=== PATIENT | female | born 1990 | race Caucasian/White ===

== ENCOUNTER 2024-02-18 17:52 | Inpatient (IN) | payer BC ==
[2024-02-18] MEDS ORDERED: Zolpidem Tartrate 5 MG TAB PO PRN (18:38)
[2024-02-18] MEDS ORDERED: Lorazepam 2 MG/ML VIAL SLOW IVP PRN (18:38)
[2024-02-18] MEDS ORDERED: Oxytocin 30 units/NS 500 ML 500 ML IV SCH ×2 (18:38)
[2024-02-18] MEDS ORDERED: Ibuprofen 800 MG TAB PO PRN (18:38)
[2024-02-18] MEDS ORDERED: fentaNYL 50 mcg/mL 1 mL Vial SLOW IVP PRN (18:38)
[2024-02-18] MEDS ORDERED: Lactated Ringer's 1,000 ML IV SCH (18:38)
[2024-02-18] MEDS ORDERED: Ondansetron PF 4 MG/2 ML Vial IVP PRN (18:38)
[2024-02-18] MEDS ORDERED: Diphenoxylate HCl/Atropine Tablet PO PRN ×2 (18:38)
[2024-02-18] MEDS ORDERED: hydrALAZINE 20 MG/ML VIAL SLOW IVP PRN ×2 (18:38)
[2024-02-18] MEDS ORDERED: Docusate 100 MG CAP PO PRN (18:38)
[2024-02-18] MEDS ORDERED: HYDROcodone/Acetaminophen 5/325 mg Tablet PO PRN ×2 (18:38)
[2024-02-18] MEDS ORDERED: Calcium Gluc 4.6 MEQ/10 ML (100 MG/ML) SLOW IVP PRN (18:38)
[2024-02-18] MEDS ORDERED: Promethazine HCl 25 MG/ML VIAL IM PRN (18:38)
[2024-02-18] MEDS ORDERED: Misoprostol 200 MCG TAB PR PRN (18:38)
[2024-02-18] MEDS ORDERED: Methylergonovine 0.2 MG/ML VIAL IM PRN (18:38)
[2024-02-18] MEDS ORDERED: Acetaminophen 500 MG TAB PO PRN (18:38)
[2024-02-18] MEDS ORDERED: Carboprost 250 MCG/ML AMP IM PRN (18:38)
[2024-02-18] MEDS ORDERED: Lidocaine 1% (PF) 30 ML VIAL SC PRN (18:38)
[2024-02-18] MEDS ORDERED: Labetalol HCl 100 MG/20 ML VIAL SLOW IVP PRN (18:38)
[2024-02-18 19:23] LABS: #Eosinphils 0.1 10x3/uL (0.0-0.5); #Monocytes 0.6 10x3/uL (0.0-1.1); #Neutrophils 6.3 10x3/uL (1.5-8.4); %Basophils 0.2 % (0.0-2.0); %Eosinophils 0.6 % (0.0-6.0); %Lymphocytes 30.4 % (18.0-47.0); %Monocytes 5.6 % (0.0-10.0); %Neutrophils 62.3 % (40.0-75.0); Hematocrit 35.7 % (34.9-44.5); Hemoglobin 12.4 g/dL (12.0-15.5); Mean Corpuscular HGB CONC 34.7 g/dL (32.0-36.0); Mean Corpuscular Hemoglobin 31.2 pg (27.0-33.0); Mean Corpuscular Volume 89.7 fl (81.6-98.3); Mean Platelet Volume 9.9 fl (7.4-10.4); Platelet Count 218 10x3/uL (150-450); RBC Distribution Width 13.6 % (11.5-14.5); Red Blood Cell (RBC) Count 3.98 10x6/uL (3.90-5.03); White Blood Cell (WBC) Count 10.2 10x3/uL (3.5-10.5)
[2024-02-18 19:29] VITALS: BMI 51.0
[2024-02-18 19:40] LABS: ALT (SGPT) 11 U/L (8-55); AST (SGOT) 17 U/L (5-34); Albumin 3.2 g/dL (3.5-5.0); Alkaline Phosphatase 110 U/L (40-110); Anion Gap 15 mmol/L (10-20); BUN (Urea Nitrogen) 9 mg/dL (7.0-18.7); Bilirubin, Total 0.3 mg/dL (0.2-1.2); Calc. Creatinine Clearance 251 mL/min (70-130); Calcium 9.4 mg/dL (7.8-10.44); Carbon Dioxide 20 mmol/L (22-29); Chloride 108 mmol/L (98-107); Estimated GFR 117; Glucose 93 mg/dL (70-105); Potassium 3.8 mmol/L (3.5-5.1); Protein, Total 6.2 g/dL (6.0-8.3); Sodium 139 mmol/L (136-145)
[2024-02-18 19:56] LABS: Syphilis Antibody Nonreactive (Nonreactive); Syphilis Antibody Index 0.09 S/CO (<1.00 Non-Reactive)
[2024-02-18 19:57] LABS: HIV (1/2) Antibody/Antigen Non-Reactive (NonReactive); HIV 1/2 INDEX 0.15 S/CO (<1.00)
[2024-02-18 19:57] LABS: HBSAg Index 0.25 S/CO (0-0.99); Hep B Surf Ag - L&D Non-Reactive S/CO (NonReactive)
[2024-02-18] MEDS: Penicillin G Potassium 5 MILL.UNITS in Sodium Chloride 0.9% 100 ML IVPB SCH (20:00)
[2024-02-18] MEDS: Oxytocin 30 units/NS 500 ML 500 ML IV SCH (20:00)
[2024-02-18 20:50] LABS: Creatinine, Urine 39.6 mg/dL (47-110)
[2024-02-18] MEDS: Penicillin G 2.5 MILL.units 2.5 MILL.UNITS in Premix 1 BAG IVPB SCH (23:58)
[2024-02-19 01:46] LABS: Uric Acid 4.1 mg/dL (2.6-6.0)
[2024-02-19] MEDS ORDERED: Moisturizing Cream (Eucerin) 113 GM JAR TOP PRN (08:30)
[2024-02-19] MEDS ORDERED: Naloxone HCl 0.4 mg/ml Vial IVP PRN ×2 (08:30)
[2024-02-19] MEDS ORDERED: Ondansetron PF 4 MG/2 ML Vial IVP PRN ×2 (08:30→12:31)
[2024-02-19] MEDS ORDERED: Promethazine HCl 25 MG/ML VIAL IM PRN (08:30)
[2024-02-19] MEDS ORDERED: fentaNYL 2 mcg/Ropivacaine 0.2% Epidural 100 ML CADD EPIDURAL SCH (08:30)
[2024-02-19] MEDS ORDERED: Lactated Ringer's 500 ML IV PRN (08:30)
[2024-02-19] MEDS ORDERED: Communication Order-Pharmacy FS SCH (08:30)
[2024-02-19] MEDS ORDERED: diphenhydrAMINE 50 MG/ML VIAL IVP PRN (08:30)
[2024-02-19] MEDS ORDERED: Acetaminophen 325 MG TAB PO PRN (08:30)
[2024-02-19] MEDS ORDERED: ePHEDrine Sulfate 50 MG/10 ML VIAL SLOW IVP PRN (08:30)
[2024-02-19] MEDS: fentaNYL/Ropivacaine Epidural 100 ML ONE (10:12)
[2024-02-19] MEDS ORDERED: HYDROcodone/Acetaminophen 5/325 mg Tablet PO PRN ×2 (12:31)
[2024-02-19] MEDS ORDERED: Preparation H Ointment 28 GM TUBE PR PRN (12:31)
[2024-02-19] MEDS ORDERED: Zolpidem Tartrate 5 MG TAB PO PRN (12:31)
[2024-02-19] MEDS ORDERED: hydrALAZINE 20 MG/ML VIAL SLOW IVP PRN (12:31)
[2024-02-19] MEDS ORDERED: Bisacodyl 10 MG SUPP PR PRN (12:31)
[2024-02-19] MEDS ORDERED: diphenhydrAMINE 25 MG CAP PO PRN (12:31)
[2024-02-19] MEDS ORDERED: Milk Of Magnesia 30 ML UDCUP PO PRN (12:31)
[2024-02-19] MEDS ORDERED: Misoprostol 200 MCG TAB VAG PRN (12:31)
[2024-02-19] MEDS ORDERED: Oxytocin 30 units/NS 500 ML 500 ML IV SCH (12:45)
[2024-02-19] MEDS: Labetalol HCl 200 MG TAB PO SCH (14:18)
[2024-02-19] MEDS: Ibuprofen 800 MG TAB PO SCH ×2 (16:21→23:28)
[2024-02-19] MEDS: Boostrix 0.5 ML (Tdap) VIAL (>/=7 yrs of age) IM ONE (17:52)
[2024-02-19] MEDS: Ferrous Sulfate 325 MG TAB PO SCH (18:03)
[2024-02-19] MEDS ORDERED: Witch Hazel-Glycerin 1 EACH JAR TOP PRN (18:42)
[2024-02-19] MEDS ORDERED: Benzocaine-Menthol 82.5 ML CAN TOP PRN (18:42)
[2024-02-19] MEDS: Docusate 100 MG CAP PO SCH (21:08)
[2024-02-20 03:55] LABS: Hematocrit 31.2 % (34.9-44.5); Hemoglobin 10.8 g/dL (12.0-15.5); Mean Corpuscular HGB CONC 34.6 g/dL (32.0-36.0); Mean Corpuscular Volume 89.7 fl (81.6-98.3); Mean Platelet Volume 9.7 fl (7.4-10.4); Platelet Count 198 10x3/uL (150-450); RBC Distribution Width 14.1 % (11.5-14.5); Red Blood Cell (RBC) Count 3.48 10x6/uL (3.90-5.03); White Blood Cell (WBC) Count 9.5 10x3/uL (3.5-10.5)
[2024-02-20 12:38] VITALS: BP 142/75; TEMP 97.8
== END 2024-02-20 16:20 | disposition home or self-care (01) | DRG 807 ==
LOC: CSHLD 17:52 → CSHPP 02-19 15:10
PROVIDERS: ADMIT Obstetrics & Gynecology; ATTEND Obstetrics & Gynecology
PROC: 10E0XZZ Delivery of Products of Conception, External Approach (ICD-10-PCS; principal; 2024-02-19)
PROC: 0KQM0ZZ Repair Perineum Muscle, Open Approach (ICD-10-PCS; 2024-02-19)
PROC: 10907ZC Drainage of Amniotic Fluid, Therapeutic from Products of Conception, Via Natural or Artificial Opening (ICD-10-PCS; 2024-02-19)
PROC: 3E033VJ Introduction of Other Hormone into Peripheral Vein, Percutaneous Approach (ICD-10-PCS; 2024-02-19)
DX: O13.4 Gestational [pregnancy-induced] hypertension without significant proteinuria, complicating childbirth (principal); Z37.0 Single live birth; Z3A.38 38 weeks gestation of pregnancy; O70.1 Second degree perineal laceration during delivery
CPT/HCPCS: 36415; 80053; 82570; 84156; 84550; 85025; 85027; 86780; 86850; 86900; 86901; 87340; 87389; J2540; J2590; J3490